=== PATIENT | female | born 1990 | race Caucasian/White ===

== ENCOUNTER → 2016-08-17 | Outpatient (CLI) | payer BC ==
--- NOTE | 2016-08-17 23:09 | MR ---
EXAMINATION TYPE: MR ankle RT wo con DATE OF EXAM: 08/17/2016 5:31 PM COMPARISON: NONE HISTORY: Right ankle pain Standard multiplanar, multisequence MRI departmental protocol Multiplanar, multisequence images of the right ankle were acquired. FINDINGS: Achilles tendon is intact. Medial and lateral flexor tendons of the ankle appear intact. Th ere is mild ankle joint effusion. The collateral ligaments appear intact. I see no bony destructive process. There is no sign of a frac ture. There is mild increased signal on the T2-weighted images in the lower soleus muscle as well as the flexor hallucis longus muscle. There is mild fluid around the flexor analysis longus tendon. IMPRESSION: No evidence of a tendon tear. Ankle joint effusion with evidence of edema in the soleus muscle and fl exor hallucis longus muscle consistent with myositis. No fracture seen.
== END | disposition home or self-care (01) ==
LOC: RADMRIMAIN 16:36
PROVIDERS: ATTEND Orthopaedic Surgery
DX: M25.471 Effusion, right ankle (principal)